=== PATIENT | male | born 1950 | race Caucasian/White ===

== ENCOUNTER 2020-12-05 08:00 | Outpatient (CLI) | payer OTHER ==
[2020-12-05 14:37] LABS: BASOPHILS % (AUTO) 0.2 %; EOSINOPHILS % (AUTO) 0.4 %; HCT - HEMATOCRIT 49.8 % (42.0-52.0); HGB - HEMOGLOBIN 16.9 g/dL (14.0-18.0); LYMPHOCYTES # (AUTO) 1.5 10^3/uL (1.5-3.5); LYMPHOCYTES % (AUTO) 18.2 %; MEAN CORPUSCULAR HEMOGLOBIN 30.7 pg (27.0-31.0); MEAN CORPUSCULAR HGB CONC 33.9 g/dL (32.0-36.0); MEAN CORPUSCULAR VOLUME 90.5 fL (80.0-94.0); MEAN PLATELET VOLUME 12.3 fL (7.4-11.4); MONOCYTES # (AUTO) 0.6 10^3/uL (0.0-1.0); MONOCYTES % (AUTO) 7.5 %; NEUTROPHILS # (AUTO) 5.9 10^3/uL (1.5-6.6); NEUTROPHILS % (AUTO) 73.5 %; PLT - PLATELET COUNT 135 10^3/uL (130-450); RED CELL DISTRIBUTION WIDTH 12.1 % (12.0-15.0)
[2020-12-05 15:40] LABS: CALCIUM 9.5 mg/dL (8.5-10.3)
[2020-12-05 15:43] LABS: THYROID STIMULATING HORMONE 2.36 uIU/mL (0.34-5.60)
[2020-12-05 16:08] LABS: ALBUMIN 4.6 g/dL (3.2-5.5); ALBUMIN/GLOBULIN RATIO 1.5 (1.0-2.2); BILIRUBIN,TOTAL 1.5 mg/dL (0.2-1.0); TOTAL PROTEIN 7.6 g/dL (6.7-8.2)
== END 2020-12-05 23:59 | disposition home or self-care (01) ==
LOC: LAB.S 08:00
PROVIDERS: ATTEND Physician Assistant Medical
DX: Z88.9 Allergy status to unspecified drugs, medicaments and biological substances (principal)
CPT/HCPCS: 36415; 80053; 84443; 85025

== ENCOUNTER 2021-02-15 14:04 | Outpatient (CLI) | payer OTHER | END 2021-02-15 14:05 | disposition home or self-care (01) | LOC: LAB.S 14:04 | PROVIDERS: ATTEND Internal Medicine | DX: Z12.5 Encounter for screening for malignant neoplasm of prostate (principal) | CPT/HCPCS: 36415; 84153 ==